=== PATIENT | male | born 1985 | race Caucasian/White ===

== ENCOUNTER 2022-09-27 23:04 | Emergency (ER) | payer OTHER, SELFPAY ==
--- NOTE | ~2022-09-27 | XR_ITS ---
Right ankle Technique: AP and lateral views were obtained. Clinical History: Pain and swelling Findings: No acute fracture or dislocation is seen. Osseous alignment is anatomic. Ankle mortise and other visualized joint spaces are preserved. Soft tissues are otherwise unremarkable. Impression: Unremarkable right ankle. Reviewed, dictated and finalized at location . Impression: Unremarkable right ankle.
--- NOTE | ~2022-09-27 | XR_ITS ---
Right foot Technique: AP and lateral views were obtained. Clinical History: Pain Findings: No acute fracture or dislocation is seen. Osseous alignment is anatomic. Joint spaces are p reserved without erosive or degenerative change. Soft tissues are unremarkable. Impression: Unremarkable right foot radiographs. Reviewed, dictated and finalized at location . Impression: Unremarkable right foot radiographs.
[2022-09-27 23:19] VITALS: BP 155/100; PULSE 96; RESP 16; TEMP 37.2; O2SAT 96
[2022-09-28 01:34] VITALS: BP 170/90; PULSE 104; RESP 16; O2SAT 97
--- NOTE | 2022-09-28 01:45 | ED.LOWEXIN ---
HPI - Extremity Injury (Lower) General Chief Complaint: Extremity Injury, Lower Stated Complaint: right ankle injury Time Seen by Provider: 09/28/22 01:28 History of Present Illness HPI Narrative: Patient is a 37-year-old male here for evaluation of right ankle pain. Patient states that he was stepping off of a curb when his heel rolled to the side. He has had pain and swelling ever since. States he has been unable to bear weight due to pain. He took Tylenol without relief of his symptoms. He denies any weakness in the foot but does have some paresthesias near the toes. No other injuries in the accident. Related Data Home Medications Medication Instructions Recorded Confirmed multivitamin 1 tablet PO DAILY 04/27/19 03/08/22 duloxetine 30 mg capsule,delayed 30 mg PO DAILY 07/14/22 07/14/22 release Allergies Allergy/AdvReac Type Severity Reaction Status Date / Time No Known Allergies Allergy Unverified 09/27/22 23:27 Review of Systems Review of Systems: Gen.: Denies fevers or chills Eyes: Denies eye pain or visual change ENT: Denies congestion Respiratory: Denies shortness of breath or cough CV: Denies chest pain or palpitations GI: Denies abdominal pain nausea, emesis or diarrhea denies burning, urgency, frequency or hematuria Musculoskeletal: Reports ankle pain Neuro: Denies numbness, tingling, weakness or focal weakness Skin: Denies rash Except as documented, all other systems reviewed and negative [facility] Past Medical History Medical History Anxiety with depression Elevated liver enzymes Essential hypertension Sleep apnea in adult Surgical History Surgical History H/O repair of left rotator cuff Family History Family History Father Family history of coronary artery disease Social History Social History (Updated 07/14/22 @ 08:07 by María Liu) Social History: Caffeine-energy drink daily Smoking status: Never smoker Alcohol intake: current Alcohol use details: occasional Lack of Transportation: No Lack of Food: Never True Current Housing: I Have Housing Concerned About Future Housing: No Difficulty Paying Gas/Electric Bills: No Difficulty Paying for Meds: No Currently Unemployed: No Education: Trade/Vocational Certificate Difficulty w/ Childcare or Family Care: No Exam Narrative: Gen: Alert, oriented, no acute distress Eyes: EOMI, no icterus Pulm: Respirations even and unlabored, symmetric thorax expansion, no audible stridor or visible cyanosis CV: Regular rate per telemetry GI: No distension, no voluntary/involuntary guarding Neuro: AOx4, moves all extremities without apparent difficulty or weakness, follows commands MSK: There is tenderness to palpation along the right lateral malleolus. There is tenderness to palpation along the shaft of the third metatarsal and the distal fifth metatarsal. No obvious deformity. No significant ligamentous laxity. Skin: No jaundice, no visible bruising, rashes, lesions or wounds on exposed skin Psych: Normal mood/affect, insight/judgement good, adequate fund of knowledge, recent/remote memory intact Course Vital Signs Vital signs: Vital Signs Temperature 99.0 F 09/27/22 23:19 Pulse Rate 96 09/27/22 23:19 Respiratory Rate 16 09/27/22 23:19 Blood Pressure 155/100 H 09/27/22 23:19 Pulse Oximetry 96 09/27/22 23:19 Oxygen Delivery Room Air 09/27/22 23:19 Temperature 99.0 F 09/27/22 23:19 Pulse Rate 104 H 09/28/22 01:34 Respiratory Rate 16 09/28/22 01:34 Blood Pressure 170/90 H 09/28/22 01:34 Pulse Oximetry 97 09/28/22 01:34 Oxygen Delivery Room Air 09/27/22 23:19 MDM - Extremity Injury (Lower) MDM Narrative Medical decision making narrative: 37-year-old male here for evaluation of right
[2022-09-28] MEDS: KETOROLAC 30 MG/ML VIAL (*BKC) IM (01:55)
== END 2022-09-28 02:15 | disposition home or self-care (01) ==
LOC: ANHED 09-28 02:06
PROVIDERS: Emergency Provider Physician Assistant; PCP Internal Medicine
DX: S93.401A Sprain of unspecified ligament of right ankle, initial encounter (principal); F32.A Depression, unspecified; X50.0XXA Overexertion from strenuous movement or load, initial encounter; F41.9 Anxiety disorder, unspecified
CPT/HCPCS: 73600; 73620; 96372; 99283; J1885